=== PATIENT | male | born 1970 | race Caucasian/White ===

== ENCOUNTER 2019-04-09 11:34 | Emergency (ER) | payer OTHER, MEDICARE ==
[~2019-04-09] VITALS: Ht 167.6 cm; Wt 88.6 kg
--- NOTE | 2019-04-09 12:47 | NUR ---
PATIENT C/O OF LEFT FINGER PAIN
[2019-04-09 13:45] VITALS: BP 132/67
== END 2019-04-09 13:48 | disposition home or self-care (01) ==
LOC: ER 11:34
DX: S63.681A Other sprain of right thumb, initial encounter (principal); Z98.890 Other specified postprocedural states; W18.39XA Other fall on same level, initial encounter; Y93.89 Activity, other specified; Y92.89 Other specified places as the place of occurrence of the external cause; Y99.8 Other external cause status
CPT/HCPCS: 29125; 73130; 99284

== ENCOUNTER 2024-09-17 16:27 | Emergency (ER) | payer MEDICARE, MEDICAID ==
[~2024-09-17] VITALS: Ht 167.6 cm; Wt 83.5 kg
[2024-09-17 17:10] VITALS: BP 141/84; PULSE 80; RESP 14; O2SAT 95
[2024-09-17] MEDS ORDERED: AMOX-580 PO (18:04)
[2024-09-17 18:19] VITALS: TEMP 97.8
== END 2024-09-17 18:20 | disposition home or self-care (01) ==
LOC: ER 16:28
DX: K02.9 Dental caries, unspecified (principal); K04.7 Periapical abscess without sinus
CPT/HCPCS: 99283